=== PATIENT | female | born 1980 | race Caucasian/White ===

== ENCOUNTER 2016-05-12 21:07 | Emergency (ER) | payer OTHER ==
--- NOTE | 2016-05-12 23:12 | ED CLINICAL REPORT ---
Clinical Report - Physicians/Mid Levels [facility] [address] [place] [address] 05/12/2016 21:06 Patient: AMANDA ACEVEDO Time Seen: 2119; upon arrival, initial patient contact, initial documentation, patient care assumed. Arrived- By private vehicle. Historian- patient. HISTORY OF PRESENT ILLNESS Chief Complaint: CHEST PAIN and DISCOMFORT. At its maximum, severity described as moderate. When seen in the E.D., severity described as moderate. Modifying factors. Not worsened by anything. Not relieved by anything. This started just prior to arrival and is still present. It is described as sharp, "pain" and well localized and it is described as located in the central chest area. No radiation. No nausea, vomiting or diaphoresis. (under lots of stress, was on meds years ago for anxiety, but those were stopped, and about x2 mos ago, was on valium but no longer takes that it either, has had issues with insomnia for years and it has been worse lately, would really like to be able to relax to sleep). She has had difficulty breathing. No additional chest pain. Similar symptoms previously: Frequently, milder. ( states she has frequent panic attacks that cause cp, but this is worse). Recent medical care: Not recently seen/assessed. REVIEW OF SYSTEMS No cough or abdominal pain. All systems otherwise negative, except as recorded above. PAST HISTORY See nurses notes. PROBLEMS: Bronchitis. Back Pain. Costochondritis. Flank Pain. Myofascial Strain. Upper Extremity Fracture. Ulna Fracture. Contusion. Concussion. Cervical Strain. Atypical Chest Pain. TMJ Syndrome. Anxiety Reaction. --21:19 Michel Chatterjee RToñoN. ADDITIONAL SURGERIES: Back Surgery. Dilatation & Curettage. Katt valencia 8 weeks ago . Wrist surgery. --21:19 Michel Chatterjee R.N. SOCIAL HISTORY Light tobacco smoker. Regular alcohol use; consumes two glasses of wine daily. No drug use. No recent travel. Is a local resident. FAMILY HISTORY Negative. ADDITIONAL NOTES The nursing notes have been reviewed with agreement regarding the chief complaint, HPI, ROS, PMH and patient medications and allergies. PHYSICAL EXAM Vital Signs: 05/12/2016 21:14 BP: 119/61. HR: 80. RR: 16. O2 saturation: 100%. Temp: 98.9 F. Pain level now: 8/10. Have been reviewed as normal and appear to be correct. Appearance: Alert. Oriented X3. No acute distress. Anxious. Eyes: Pupils equal, round and reactive to light. Eyes normal inspection. Neck: Normal inspection. Neck supple. CVS: Normal heart rate and rhythm. Heart sounds normal. Pulses normal. Respiratory: No respiratory distress. Breath sounds normal. Chest nontender. Back: Normal external inspection. Skin: Skin warm and dry. Normal skin color. No rash. Normal skin turgor. Extremities: Extremities exhibit normal ROM. No lower extremity edema. Neuro: Oriented X 3. No motor deficit. No sensory deficit. LABS, X-RAYS, AND EKG EKG: EKG time: (2125). No acute process. No acute ischemia. Normal EKG. Rate: 80. Normal EKG. The study has been interpreted contemporaneously by me (and Dr. Merrill). The EKG appears to be a good tracing. Interpretation time: 2214. Laboratory Tests: Serum Qualitative: (MARTHA: 05/12/2016 21:25) ( [facility] 05/12/[place] 22:08) Final results Test Result Flag Units (Reference) , SERUM NEGATIVE CBC w Diff: (MARTHA: 05/12/2016 21:25) ( [facility] 05/12/2016 22:08) Final results Test Result Flag Units (Reference) WHITE BLOOD COUNT 6.3 K/uL (4.5-11.5) RED BLOOD COUNT 4.51 M/uL (4.00-5.20) HEMOGLOBIN 14.0 gm/dL (12.0-16.0) HEMATOCRIT 41.9 % (36.0-46.0) MEAN CELL VOLUME 93 fL (80-100) MEAN CORPUSCULAR HGB 31 pg (26-34) MEAN CORPUSCULAR HGB CONC 34 g/dL (31-37) RED CELL DISTRIBUTION WIDTH 13.8 % (11.6-14.8) PLATELET COUNT 240 K/uL (150-400) NEUTROPHIL % 63.2 % (50-75) LYMPH % 27.7 % (25-40) MONO % 7.6 % (3-14) EOSINOPHIL % 1.1 % (0-4) BASOPHIL % 0.4 % (0-2) BMP: (MARTHA: 05/12/2016 21:25) ( [facility] 05/12/2016 22:50) Final results Test Result Flag Units (Reference) GLUCOSE 75 mg/dL (70-110) BUN 28 H mg/dL (7-18) CREATININE 0.7 mg/dL (0.6-1.3) Estimated GFR >60 mL/min Estimated GFR- >60 mL/min Note: Persistent reduction over 3 months in eGFR<60 mL/min/1.73 m2 defines CKD. Patients with eGFR values>=60 mL/min/1.73 m2 may also have CKD if evidence ofpersistent proteinuria. Additional information may be foundat www.kidney.org. SODIUM 140 mmol/L (136-145) POTASSIUM 4.2 mmol/L (3.5-5.1) CHLORIDE 104 mmol/L (98-107) CARBON DIOXIDE 25 mmol/L (21-32) CALCIUM 8.8 mg/dL (8.5-10.1) CPK 154 U/L (24-260) TROPONIN I <0.05 ng/mL (0.00-1.5) TROPONIN REFERENCE RANGE:<0.1 NEGATIVE0.1-1.5 INDETERMINANT>1.5 POSITIVE . PROGRESS AND PROCEDURES Course of Care: 2214. at bedside still doing exam and [employer] was hooking pt up to ekg at 2124, was asking for ekg, and [employer] just now gave it to me 23:45 05/12/16. pt asking for stomach meds, stating her stomach is churning 00:05 05/13/16. pt now asking for more anxiety meds, request denied due to pt given rx for anxiety. Patient counseled in person regarding the patient's stable condition, test results and diagnosis. 23:00. Differential Diagnosis: I considered muscle strain, costochondritis, myositis, pleurisy, myocardial infarction, intermediate coronary syndrome, unstable angina, angina, aortic dissection, mitral valve prolapse, pericarditis, palpitations, pulmonary embolism, pneumonia, gastroesophageal reflux disease, esophagitis and esophageal spasm as a possible cause of chest pain in this patient. This is a partial list of diagnoses considered. (anxiety, panic attack, substance abuse). Disposition: Discharged home in good and improved condition (23:12). Condition: good and stable. CLINICAL IMPRESSION Atypical chest pain .12 lead EKG performed. Anxiety reaction. INSTRUCTIONS Warnings: GENERAL WARNINGS: Return or contact your physician immediately if your condition worsens or changes unexpectedly, if not improving as expected, or if other problems arise. SPECIFICALLY, return if you develop chest, neck, jaw, shoulder, arm, or back pain, difficulty breathing, a fluttering sensation in your chest, lightheadedness, fainting, excessive fatigue, or sudden sweating. Prescription Medications: Xanax 0.25 mg: Take 1 orally every 8 hours as needed for anxiety. Dispense fifteen (15). No refills. Substitution is permissible. Follow-up: Follow up with your doctor in about three days even if well. Call for an appointment. Summary of care provided to patient. Understanding of the discharge instructions verbalized by patient. (Electronically signed by Genesis Hicks A.R.N.P. 05/13/2016 0:23)
--- NOTE | 2016-05-12 23:12 | ED CLINICAL REPORT ---
Clinical Report - Physicians/Mid Levels [facility] [address] [place] [address] 05/12/2016 21:06 Patient: AMANDA ACEVEDO Time Seen: 2119; upon arrival, initial patient contact, initial documentation, patient care assumed. Arrived- By private vehicle. Historian- patient. HISTORY OF PRESENT ILLNESS Chief Complaint: CHEST PAIN and DISCOMFORT. At its maximum, severity described as moderate. When seen in the E.D., severity described as moderate. Modifying factors. Not worsened by anything. Not relieved by anything. This started just prior to arrival and is still present. It is described as sharp, "pain" and well localized and it is described as located in the central chest area. No radiation. No nausea, vomiting or diaphoresis. (under lots of stress, was on meds years ago for anxiety, but those were stopped, and about x2 mos ago, was on valium but no longer takes that it either, has had issues with insomnia for years and it has been worse lately, would really like to be able to relax to sleep). She has had difficulty breathing. No additional chest pain. Similar symptoms previously: Frequently, milder. ( states she has frequent panic attacks that cause cp, but this is worse). Recent medical care: Not recently seen/assessed. REVIEW OF SYSTEMS No cough or abdominal pain. All systems otherwise negative, except as recorded above. PAST HISTORY See nurses notes. PROBLEMS: Bronchitis. Back Pain. Costochondritis. Flank Pain. Myofascial Strain. Upper Extremity Fracture. Ulna Fracture. Contusion. Concussion. Cervical Strain. Atypical Chest Pain. TMJ Syndrome. Anxiety Reaction. --21:19 Michel Chatterjee RToñoN. ADDITIONAL SURGERIES: Back Surgery. Dilatation & Curettage. Katt valencia 8 weeks ago . Wrist surgery. --21:19 Michel Chatterjee R.N. SOCIAL HISTORY Light tobacco smoker. Regular alcohol use; consumes two glasses of wine daily. No drug use. No recent travel. Is a local resident. FAMILY HISTORY Negative. ADDITIONAL NOTES The nursing notes have been reviewed with agreement regarding the chief complaint, HPI, ROS, PMH and patient medications and allergies. PHYSICAL EXAM Vital Signs: 05/12/2016 21:14 BP: 119/61. HR: 80. RR: 16. O2 saturation: 100%. Temp: 98.9 F. Pain level now: 8/10. Have been reviewed as normal and appear to be correct. Appearance: Alert. Oriented X3. No acute distress. Anxious. Eyes: Pupils equal, round and reactive to light. Eyes normal inspection. Neck: Normal inspection. Neck supple. CVS: Normal heart rate and rhythm. Heart sounds normal. Pulses normal. Respiratory: No respiratory distress. Breath sounds normal. Chest nontender. Back: Normal external inspection. Skin: Skin warm and dry. Normal skin color. No rash. Normal skin turgor. Extremities: Extremities exhibit normal ROM. No lower extremity edema. Neuro: Oriented X 3. No motor deficit. No sensory deficit. LABS, X-RAYS, AND EKG EKG: EKG time: (2125). No acute process. No acute ischemia. Normal EKG. Rate: 80. Normal EKG. The study has been interpreted contemporaneously by me (and Dr. Merrill). The EKG appears to be a good tracing. Interpretation time: 2214. Laboratory Tests: Serum Qualitative: (MARTHA: 05/12/2016 21:25) ( [facility]:08) Final results Test Result Flag Units (Reference) , SERUM NEGATIVE CBC w Diff: (MARTHA: 05/12/2016 21:25) ( [facility] 05/12/2016 22:08) Final results Test Result Flag Units (Reference) WHITE BLOOD COUNT 6.3 K/uL (4.5-11.5) RED BLOOD COUNT 4.51 M/uL (4.00-5.20) HEMOGLOBIN 14.0 gm/dL (12.0-16.0) HEMATOCRIT 41.9 % (36.0-46.0) MEAN CELL VOLUME 93 fL (80-100) MEAN CORPUSCULAR HGB 31 pg (26-34) MEAN CORPUSCULAR HGB CONC 34 g/dL (31-37) RED CELL DISTRIBUTION WIDTH 13.8 % (11.6-14.8) PLATELET COUNT 240 K/uL (150-400) NEUTROPHIL % 63.2 % (50-75) LYMPH % 27.7 % (25-40) MONO % 7.6 % (3-14) EOSINOPHIL % 1.1 % (0-4) BASOPHIL % 0.4 % (0-2) BMP: (MARTHA: 05/12/2016 21:25) ( [facility] 05/12/2016 22:50) Final results Test Result Flag Units (Reference) GLUCOSE 75 mg/dL (70-110) BUN 28 H mg/dL (7-18) CREATININE 0.7 mg/dL (0.6-1.3) Estimated GFR >60 mL/min Estimated GFR- >60 mL/min Note: Persistent reduction over 3 months in eGFR<60 mL/min/1.73 m2 defines CKD. Patients with eGFR values>=60 mL/min/1.73 m2 may also have CKD if evidence ofpersistent proteinuria. Additional information may be foundat www.kidney.org. SODIUM 140 mmol/L (136-145) POTASSIUM 4.2 mmol/L (3.5-5.1) CHLORIDE 104 mmol/L (98-107) CARBON DIOXIDE 25 mmol/L (21-32) CALCIUM 8.8 mg/dL (8.5-10.1) CPK 154 U/L (24-260) TROPONIN I <0.05 ng/mL (0.00-1.5) TROPONIN REFERENCE RANGE:<0.1 NEGATIVE0.1-1.5 INDETERMINANT>1.5 POSITIVE . PROGRESS AND PROCEDURES Course of Care: 2214. at bedside still doing exam and [employer] was hooking pt up to ekg at 2124, was asking for ekg, and [employer] just now gave it to me 23:45 05/12/16. pt asking for stomach meds, stating her stomach is churning 00:05 05/13/16. pt now asking for more anxiety meds, request denied due to pt given rx for anxiety. Patient counseled in person regarding the patient's stable condition, test results and diagnosis. 23:00. Differential Diagnosis: I considered muscle strain, costochondritis, myositis, pleurisy, myocardial infarction, intermediate coronary syndrome, unstable angina, angina, aortic dissection, mitral valve prolapse, pericarditis, palpitations, pulmonary embolism, pneumonia, gastroesophageal reflux disease, esophagitis and esophageal spasm as a possible cause of chest pain in this patient. This is a partial list of diagnoses considered. (anxiety, panic attack, substance abuse). Disposition: Discharged home in good and improved condition (23:12). Condition: good and stable. CLINICAL IMPRESSION Atypical chest pain .12 lead EKG performed. Anxiety reaction. INSTRUCTIONS Warnings: GENERAL WARNINGS: Return or contact your physician immediately if your condition worsens or changes unexpectedly, if not improving as expected, or if other problems arise. SPECIFICALLY, return if you develop chest, neck, jaw, shoulder, arm, or back pain, difficulty breathing, a fluttering sensation in your chest, lightheadedness, fainting, excessive fatigue, or sudden sweating. Prescription Medications: Xanax 0.25 mg: Take 1 orally every 8 hours as needed for anxiety. Dispense fifteen (15). No refills. Substitution is permissible. Follow-up: Follow up with your doctor in about three days even if well. Call for an appointment. Summary of care provided to patient. Understanding of the discharge instructions verbalized by patient. (Electronically signed by Genesis Hicks A.R.N.P. 05/13/2016 0:23)
--- NOTE | 2016-05-12 23:13 | ED NURSING NOTES ---
Clinical Report - Nurses [facility] [address] [place] [address] 05/12/2016 21:06 [id number] Triage time 21:14 May 12 2016. Acuity: LEVEL 3. Chief Complaint: CHEST PAIN. Alert. BENJI COMA SCORE: Williams Coma Scale: 15- eyes open spontaneously (4); best verbal response- oriented x 4 (5); best motor response- obeys commands (6). --21:30 Michel Chatterjee R.N. 21:14 05/12/16. BP: 119/61. HR: 80. RR: 16. O2 saturation: 100%. Temp: 98.9 F (oral). Pain level now: 8/10. Additional comments: substernal pain. --21:30 Michel Chatterjee R.N. Weight: 88.4 kg stated. Height/Length: 68 inches Per Patient. BMI: 29.6. --21:17 Michel Chatterjee R.N. Medications Benadryl Oral. Diazepam Oral 10 mg, as needed. --21:20 Michel Chatterjee R.N. Medication/allergy information source: the patient. --21:30 Michel Chatterjee R.N. Allergies No Known Drug Allergy. --21:20 Michel Chatterjee R.N. History Arrived by private vehicle. Historian: patient. Accompanied by spouse. Primary physician ([facility]le). ( Chest Pain located substernally. Pt states that she has had panic attacks before but this is different.). This started just prior to arrival and today. She has had difficulty breathing. 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 PAST MEDICAL HX: Immunizations: up-to-date. Last normal menstrual period- pt states that she has an IUD. Denies current . SOCIAL HX: Light tobacco smoker (cigarette)- less than 1/2 a pack per day. Alcohol use; consumes wine occasionally. No drug use. No infectious disease exposure. ABUSE ASSESSMENT: No report of abuse. FALL RISK ASSESSMENT: Fall risk assessment completed. No fall risk identified. NUTRITIONAL RISK ASSESSMENT: The nutritional risk assessment revealed no deficiencies. FUNCTIONAL ASSESSMENT: Functional assessment: no impairments noted. LEARNING NEEDS ASSESSMENT: The learning needs assessment revealed no barriers. SKIN INTEGRITY ASSESSMENT: Skin integrity risk assessment completed. No skin integrity risk identified. --21:30 Michel Chatterjee R.N. PROBLEMS: Bronchitis. Back Pain. Costochondritis. Flank Pain. Myofascial Strain. Upper Extremity Fracture. Ulna Fracture. Contusion. Concussion. Cervical Strain. Atypical Chest Pain. TMJ Syndrome. Anxiety Reaction. --21:19 Michel Chatterjee R.N. ADDITIONAL SURGERIES: Back Surgery. Dilatation & Curettage. Tummy tuck 8 weeks ago . Wrist surgery. --21:19 Michel Chatterjee R.N. Interventions ID band on patient. To treatment room. --21:30 Michel Chatterjee R.N. PHYSICAL ASSESSMENT Ambulatory to room. GENERAL / NEURO / PSYCH: Alert. Oriented X 4. Appears in pain. HEENT: Mucous membranes are pink. RESPIRATORY: Respirations not labored. Breath sounds within normal limits. CVS: Abnormal heart sounds: murmur (soft LSB 2ICS). Pulses within normal limits. Capillary refill less than 2 seconds. GI / : Abdomen soft and nontender. ( "feels bloated"). EXTREMITIES: No lower extremity edema. SKIN: Skin is warm and dry. Normal skin turgor. Skin is non-tender. --21:34 Michel Chatterjee R.N. NURSING PROGRESS NOTES 21:17 05/12/2016 Site #1 started via IV in the right forearm with an 20g angiocath, with aseptic technique and good blood return; one attempt. Blood drawn: rainbow set. Labeled in the presence of the patient and sent to the lab. Saline lock flushed with 10 mL saline (start by Aixa Hanson RN). --21:22 Michel Chatterjee R.N. teletypesetter monitor, pulse oximeter and NIBP monitor placed on patient; teletypesetter monitor- Lead II and V1; monitor alarms on. Patient gowned. Reassurance given to the patient. Patient identifiers checked. Call light placed in reach. Side rails up x 2. Bed placed in lowest position. Brakes of bed on. Patient ready for evaluation- chart flagged and ED physician notified. --21:34 Michel Chatterjee R.N. 23:51 05/12/2016 Toradol IVP 30 mg given over 2 minute(s) via site #1. Allergies verified and confirmed 5 rights. IV patency established. IV site checked: no pain, redness, or swelling. IV flushed thoroughly pre- and post-medication administration. IVP given by RN. --00:06 Michel Chatterjee R.N. 23:56 05/12/2016 Ativan (LORazepam) IVP 2 mg given over 2 minute(s) via site #1. Allergies verified, confirmed 5 rights and sedative warning given to the patient. IV patency established. IV site checked: no pain, redness, or swelling. IV flushed thoroughly pre- and post-medication administration. IVP given by RN. --00:07 Michel Chatterjee R.N. 23:58 05/12/2016 Viscous Lidocaine 15mL/Maalox 15mL * PO 30mL --00:08 Michel Chatterjee R.N. DISPOSITION / DISCHARGE 00:02 05/13/16. BP: 91/78. HR: 77. RR: 19. O2 saturation: 97%. Pain level now 0/10. --00:02 Alex Atkins R.N. 00:16 05/13/2016 Site #1 removed upon admission. Catheter intact. Bandage applied. --00:16 Alex Atkins R.N. Departure time: 00:20. Condition at departure: improved. No learning barriers present. Discharge instructions provided and reviewed with the patient. Reviewed warnings. Patient verbalized understanding. Written instructions provided in Romanian. ( Pt wanted more anxiety medication to allow her to sleep. SENIOR INFORMATION SECURITY CONSULTANT was notified and stated nothing more could be given for her. Pt was calm and no signs of distress or anxiety when discharged.). The patient was discharged by the nurse practitioner. She was discharged home and accompanied by spouse. She left the Emergency Department ambulatory and via private vehicle. Spouse driving. --00:21 Alex Atkins R.N. Locked/Released at 05/13/2016 0:22 by Alex Atkins R.N.
--- NOTE | 2016-05-12 23:13 | ED ORDER SUMMARY ---
..... Patient: AMANDA ACEVEDO OrderSheet [facility] VisitID: [id number] [place] [address] 36y, F Registration Date/Time: 05/12/2016 ORDER SHEET Weight: 88.4 kg (stated) Allergies: No Known Drug Allergy GENERAL ORDERS: Chest 2V Urgent (21:53 05/12/2016 HBivens A.R.N.P.) (22:04 LTapper) CBC w Diff Urgent (21:53 05/12/2016 HBivens A.R.N.P.) (Ack 22:22 LTapper) (23:33 JRomanelli R.N.) BMP Urgent (21:53 05/12/2016 HBivens A.R.N.P.) (Ack 22:22 LTapper) (23:33 JRomanelli R.N.) CPK Urgent (21:53 05/12/2016 HBivens A.R.N.P.) (Ack 22:22 LTapper) (23:33 JRomanelli R.N.) Troponin-I Urgent (21:53 05/12/2016 HBivens A.R.N.P.) (Ack 22:22 LTapper) (23:33 JRomanelli R.N.) Serum Qualitative Urgent (21:53 05/12/2016 HBivens A.R.N.P.) (Ack 22:22 LTapper) (23:33 JRomanelli R.N.) EKG - ER Stat (21:53 05/12/2016 HBivens A.R.N.P.) (22:22 LTapper) MEDICATION ORDERS: GI Cocktail WHITE PO 30 mL with Lidocaine Viscous Mouth/Throat 15 mL, Maalox Plus Oral 15 mL (NOW) (23:45 05/12/2016 HBivens A.R.N.P.) (Ack 23:59 JDeElena R.N.) (0:08 JRomanelli R.N.) IV FLUIDS: IV Saline Lock (21:21 05/12/2016 JRomanelli R.N. verbal order read back to HBivens A.R.N.P.) (21:22 omanelli R.N.) Toradol IV 30 mg (NOW) (23:04 05/12/2016 HBivens A.R.N.P.) (Ack 23:42 ChayaElena R.N.) (0:06 JRomanelli R.N.) Ativan IV 2 mg (HIGH ALERT MEDICATION, NOW) (23:04 05/12/2016 HBivens A.R.N.P.) (Ack 23:42 ChayaElena R.N.) (0:07 JRomanelli R.N.) ORDER SHEET NOTES: [Electronically signed by Alex Atkins R.N. (00:05/13/2016)] [Electronically signed by Genesis HicksN.P. (00:05/13/2016)] [Electronically locked/signed by Alex Atkins R.N. (00:05/13/2016)]
--- NOTE | 2016-05-12 23:13 | ED NURSING NOTES ---
Clinical Report - Nurses [facility] [place] [address] 05/12/2016 21:06 [id number] Triage time 21:14 May 12 2016. Acuity: LEVEL 3. Chief Complaint: CHEST PAIN. Alert. BENJI COMA SCORE: [place] Coma Scale: 15- eyes open spontaneously (4); best verbal response- oriented x 4 (5); best motor response- obeys commands (6). --21:30 Michel Chatterjee R.N. 21:14 05/12/16. BP: 119/61. HR: 80. RR: 16. O2 saturation: 100%. Temp: 98.9 F (oral). Pain level now: 8/10. Additional comments: substernal pain. --21:30 Michel Chatterjee R.N. Weight: 88.4 kg stated. Height/Length: 68 inches Per Patient. BMI: 29.6. --21:17 Michel Chatterjee R.N. Medications Benadryl Oral. Diazepam Oral 10 mg, as needed. --21:20 Michel Chatterjee R.N. Medication/allergy information source: the patient. --21:30 Michel Chatterjee R.N. Allergies No Known Drug Allergy. --21:20 Michel Chatterjee R.N. History Arrived by private vehicle. Historian: patient. Accompanied by spouse. Primary physician (Ihle). ( Chest Pain located substernally. Pt states that she has had panic attacks before but this is different.). This started just prior to arrival and today. She has had difficulty breathing. 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 PAST MEDICAL HX: Immunizations: up-to-date. Last normal menstrual period- pt states that she has an IUD. Denies current . SOCIAL HX: Light tobacco smoker (cigarette)- less than 1/2 a pack per day. Alcohol use; consumes wine occasionally. No drug use. No infectious disease exposure. ABUSE ASSESSMENT: No report of abuse. FALL RISK ASSESSMENT: Fall risk assessment completed. No fall risk identified. NUTRITIONAL RISK ASSESSMENT: The nutritional risk assessment revealed no deficiencies. FUNCTIONAL ASSESSMENT: Functional assessment: no impairments noted. LEARNING NEEDS ASSESSMENT: The learning needs assessment revealed no barriers. SKIN INTEGRITY ASSESSMENT: Skin integrity risk assessment completed. No skin integrity risk identified. --21:30 Michel Chatterjee R.N. PROBLEMS: Bronchitis. Back Pain. Costochondritis. Flank Pain. Myofascial Strain. Upper Extremity Fracture. Ulna Fracture. Contusion. Concussion. Cervical Strain. Atypical Chest Pain. TMJ Syndrome. Anxiety Reaction. --21:19 Michel Chatterjee R.N. ADDITIONAL SURGERIES: Back Surgery. Dilatation & Curettage. Tummy tuck 8 weeks ago . Wrist surgery. --21:19 Michel Chatterjee R.N. Interventions ID band on patient. To treatment room. --21:30 Michel Chatterjee R.N. PHYSICAL ASSESSMENT Ambulatory to room. GENERAL / NEURO / PSYCH: Alert. Oriented X 4. Appears in pain. HEENT: Mucous membranes are pink. RESPIRATORY: Respirations not labored. Breath sounds within normal limits. CVS: Abnormal heart sounds: murmur (soft LSB 2ICS). Pulses within normal limits. Capillary refill less than 2 seconds. GI / : Abdomen soft and nontender. ( "feels bloated"). EXTREMITIES: No lower extremity edema. SKIN: Skin is warm and dry. Normal skin turgor. Skin is non-tender. --21:34 Michel Chatterjee R.N. NURSING PROGRESS NOTES 21:17 05/12/2016 Site #1 started via IV in the right forearm with an 20g angiocath, with aseptic technique and good blood return; one attempt. Blood drawn: rainbow set. Labeled in the presence of the patient and sent to the lab. Saline lock flushed with 10 mL saline (start by Aixa Hanson RN). --21:22 Michel Chatterjee R.N. regional medical director, pulse oximeter and NIBP monitor placed on patient; director cardiac- Lead II and V1; monitor alarms on. Patient gowned. Reassurance given to the patient. Patient identifiers checked. Call light placed in reach. Side rails up x 2. Bed placed in lowest position. Brakes of bed on. Patient ready for evaluation- chart flagged and ED physician notified. --21:34 Michel Chatterjee R.N. 23:51 05/12/2016 Toradol IVP 30 mg given over 2 minute(s) via site #1. Allergies verified and confirmed 5 rights. IV patency established. IV site checked: no pain, redness, or swelling. IV flushed thoroughly pre- and post-medication administration. IVP given by RN. --00:06 Michel Chatterjee R.N. 23:56 05/12/2016 Ativan (LORazepam) IVP 2 mg given over 2 minute(s) via site #1. Allergies verified, confirmed 5 rights and sedative warning given to the patient. IV patency established. IV site checked: no pain, redness, or swelling. IV flushed thoroughly pre- and post-medication administration. IVP given by RN. --00:07 Michel Chatterjee R.N. 23:58 05/12/2016 Viscous Lidocaine 15mL/Maalox 15mL * PO 30mL --00:08 Michel Chatterjee R.N. DISPOSITION / DISCHARGE 00:02 05/13/16. BP: 91/78. HR: 77. RR: 19. O2 saturation: 97%. Pain level now 0/10. --00:02 Alex Atkins R.N. 00:16 05/13/2016 Site #1 removed upon admission. Catheter intact. Bandage applied. --00:16 Alex Atkins R.N. Departure time: 00:20. Condition at departure: improved. No learning barriers present. Discharge instructions provided and reviewed with the patient. Reviewed warnings. Patient verbalized understanding. Written instructions provided in Greenlandic. ( Pt wanted more anxiety medication to allow her to sleep. FEATHER EDGER was notified and stated nothing more could be given for her. Pt was calm and no signs of distress or anxiety when discharged.). The patient was discharged by the nurse practitioner. She was discharged home and accompanied by spouse. She left the Emergency Department ambulatory and via private vehicle. Spouse driving. --00:21 Alex Atkins R.N. Locked/Released at 05/13/2016 0:22 by Alex Atkins R.N.
--- NOTE | 2016-05-12 23:13 | ED ORDER SUMMARY ---
..... Patient: AMANDA ACEVEDO OrderSheet [facility] VisitID: [id number] [place] [address] 36y, F Registration Date/Time: 05/12/2016 ORDER SHEET Weight: 88.4 kg (stated) Allergies: No Known Drug Allergy GENERAL ORDERS: Chest 2V Urgent (21:53 05/12/2016 HBivens A.R.N.P.) (22:04 LTapper) CBC w Diff Urgent (21:53 05/12/2016 HBivens A.R.N.P.) (Ack 22:22 LTapper) (23:33 JRomanelli R.N.) BMP Urgent (21:53 05/12/2016 HBivens A.R.N.P.) (Ack 22:22 LTapper) (23:33 JRomanelli R.N.) CPK Urgent (21:53 05/12/2016 HBivens A.R.N.P.) (Ack 22:22 LTapper) (23:33 JRomanelli R.N.) Troponin-I Urgent (21:53 05/12/2016 HBivens A.R.N.P.) (Ack 22:22 LTapper) (23:33 JRomanelli R.N.) Serum Qualitative Urgent (21:53 05/12/2016 HBivens A.R.N.P.) (Ack 22:22 LTapper) (23:33 JRomanelli R.N.) EKG - ER Stat (21:53 05/12/2016 HBivens A.R.N.P.) (22:22 LTapper) MEDICATION ORDERS: GI Cocktail WHITE PO 30 mL with Lidocaine Viscous Mouth/Throat 15 mL, Maalox Plus Oral 15 mL (NOW) (23:45 05/12/2016 HBivens A.R.N.P.) (Ack 23:59 JDeElena R.N.) (0:08 JRomanelli R.N.) IV FLUIDS: IV Saline Lock (21:21 05/12/2016 JRomanelli R.N. verbal order read back to HBivens A.R.N.P.) (21:22 omanelli R.N.) Toradol IV 30 mg (NOW) (23:04 05/12/2016 HBivens A.R.N.P.) (Ack 23:42 ChayaElena R.N.) (0:06 JRomanelli R.N.) Ativan IV 2 mg (HIGH ALERT MEDICATION, NOW) (23:04 05/12/2016 HBivens A.R.N.P.) (Ack 23:42 ChayaElena R.N.) (0:07 JRomanelli R.N.) ORDER SHEET NOTES: [Electronically signed by Alex Atkins R.N. (00:05/13/2016)] [Electronically signed by Genesis HicksN.P. (00:05/13/2016)] [Electronically locked/signed by Alex Atkins R.N. (00:05/13/2016)]
--- NOTE | 2016-05-13 00:03 | DIAGNOSTIC IMAGING REPORT ---
PROCEDURE: XR CHEST 2 VIEW INDICATION: Chest pain, initial encounter TECHNIQUE: PA and lateral view. COMPARISON: Chest x-ray 03/27/2016 FINDINGS: Lungs are clear. Cardiovascular structures are normal. Bony thorax is unremarkable. No significant interval change. IMPRESSION: 1. Negative chest.
--- NOTE | 2016-05-13 00:23 | ED MAR SUMMARY ---
..... Medication Administration Record [facility] [address] [place] [address] Patient: AMANDA ACEVEDO Visit ID: [id number] 36y, F Weight: 88.4 kg Height/Length: 68 in BMI: 29.6 ALLERGIES: No Known Drug Allergy Given 23:51 05/12/2016 Michel Chatterjee, R.N. Medication Administered: TORADOL [IVP], Dose: 30 mg IVP over 2 minute(s), Site: #1 right forearm. Medication Ordered: Toradol IV 30 mg (NOW). Given 23:56 05/12/2016 Michel Chatterjee, R.N. Medication Administered: ATIVAN [IVP] (LORAZEPAM), Dose: 2 mg IVP over 2 minute(s), Site: #1 right forearm. Medication Ordered: Ativan IV 2 mg (HIGH ALERT MEDICATION, NOW). Given 23:58 05/12/2016 Michel Chatterjee, R.N. Medication Administered: Viscous Lidocaine 15mL/Maalox 15mL *, Dose: 30mL * PO. Medication Ordered: GI Cocktail WHITE PO 30 mL with Lidocaine Viscous Mouth/Throat 15 mL, Maalox Plus Oral 15 mL (NOW).
--- NOTE | 2016-05-13 00:23 | ED MED RECONCILIATION SUMMARY ---
Patient: AMANDA ACEVEDO Medication Reconciliation Report [facility] VisitID: [id number] [place] [address] 36y, F Registration Date/Time: 05/12/2016 Weight: 88.4 kg Height/Length: 68 in. BMI: 29.6 ALLERGIES: No Known Drug Allergy The patient's Home Medications are listed below: THE FOLLOWING MEDICATIONS NEED TO BE RECONCILED: Benadryl Oral Diazepam Oral 10 mg The source(s) of the original Home Medication information: patient The following Medications were given to the patient in the Emergency Department: Toradol [IVP] IVP 30 mg, administered: 05/12/2016 11:51:00 PM Ativan [IVP] IVP 2 mg, administered: 05/12/2016 11:56:00 PM Viscous Lidocaine 15mL/Maalox 15mL PO 30mL, administered: 05/12/2016 11:58:00 PM The following Medications were prescribed to the patient: Xanax 0.25 mg: Take 1 orally every 8 hours as needed for anxiety. Dispense fifteen (15). No refills. Substitution is permissible. -- Genesis Hicks A.R.N.P.
--- NOTE | 2016-05-13 00:23 | ED MED RECONCILIATION SUMMARY ---
Patient: AMANDA ACEVEDO Medication Reconciliation Report [facility] VisitID: [id number] [place] [address] 36y, F Registration Date/Time: 05/12/2016 Weight: 88.4 kg Height/Length: 68 in. BMI: 29.6 ALLERGIES: No Known Drug Allergy The patient's Home Medications are listed below: THE FOLLOWING MEDICATIONS NEED TO BE RECONCILED: Benadryl Oral Diazepam Oral 10 mg The source(s) of the original Home Medication information: patient The following Medications were given to the patient in the Emergency Department: Toradol [IVP] IVP 30 mg, administered: 05/12/2016 11:51:00 PM Ativan [IVP] IVP 2 mg, administered: 05/12/2016 11:56:00 PM Viscous Lidocaine 15mL/Maalox 15mL PO 30mL, administered: 05/12/2016 11:58:00 PM The following Medications were prescribed to the patient: Xanax 0.25 mg: Take 1 orally every 8 hours as needed for anxiety. Dispense fifteen (15). No refills. Substitution is permissible. -- Genesis Hicks A.R.N.P.
--- NOTE | 2016-05-13 00:23 | ED DISCHARGE INSTRUCTIONS ---
Patient: AMANDA ACEVEDO General Instructions [facility] VisitID: [id number] [place] [address] 36y, F Registration Date/Time: 05/12/2016 Atypical chest pain .12 lead EKG performed. Anxiety reaction. INSTRUCTIONS Warnings: GENERAL WARNINGS: Return or contact your physician immediately if your condition worsens or changes unexpectedly, if not improving as expected, or if other problems arise. SPECIFICALLY, return if you develop chest, neck, jaw, shoulder, arm, or back pain, difficulty breathing, a fluttering sensation in your chest, lightheadedness, fainting, excessive fatigue, or sudden sweating. Prescription Medications: Xanax 0.25 mg: Take 1 orally every 8 hours as needed for anxiety. Dispense fifteen (15). No refills. Substitution is permissible. Follow-up: Follow up with your doctor in about three days even if well. Call for an appointment. Summary of care provided to patient. Understanding of the discharge instructions verbalized by patient. ADDITIONAL INFORMATION Chest Pain, Noncardiac Based on your visit today, the exact cause of your chest pain is not certain. Your condition does not seem serious and your pain does not appear to be coming from your heart. However, sometimes the signs of a serious problem take more time to appear. Therefore, please watch for the warning signs listed below. Home Care: Rest today and avoid strenuous activity. Take any prescribed medicine as directed. Follow Up with your doctor or this facility as instructed or if you do not start to feel better within 24 hours. Get Prompt Medical Attention if any of the following occur: A change in the type of pain: if it feels different, becomes more severe, lasts longer, or begins to spread into your shoulder, arm, neck, jaw or back Shortness of breath or increased pain with breathing Cough with dark colored sputum (phlegm) or blood Weakness, dizziness, or fainting Fever of 100.4F (38C) or higher, or as directed by your healthcare provider Swelling, pain or redness in one leg Stress Reaction Anxiety is the feeling we all get when we think something bad might happen. It is a normal response to stress and usually causes only a mild reaction. When anxiety becomes more severe, emotions may interfere with daily life. In some cases, you may not even be aware of what it is youre anxious about! During an anxiety reaction, you may feel like you are helpless, nervous, depressed or irritable. Your body may show signs of anxiety in many ways. You may experience dry mouth, shakiness, dizziness, weakness, trouble breathing, chest pressure, headache, nausea, diarrhea, tiredness, inability to sleep or sexual problems. Home Care: 1) Try to locate the sources of stress in your life. They may not be obvious! These may include: -- Daily hassles of life which pile up (traffic jams, missed appointments, car troubles, etc.) -- Major life changes, both good (new baby, job promotion) and bad (loss of job, loss of loved one) -- Overload: feeling that you have too many responsibilities and can't take care of all of them at once -- Feeling helpless, feeling that your problems are beyond what youre able to solve 2) Notice how your body reacts to stress. Learn to listen to your body signals. This will help you take action before the stress becomes severe. 3) When you can, do something about the source of your stress. (Avoid hassles, limit the amount of change that happens in your life at one time and take a break when you feel overloaded). 4) Unfortunately, many stressful situations cannot be avoided. It is necessary to learn HOW TO MANAGE STRESS better. There are many proven methods that will reduce your anxiety. These include simple things like exercise, good nutrition and adequate rest. Also, there are certain techniques that are helpful: relaxation and breathing exercises, visualization, biofeedback and meditation. For more information about this, consult your doctor or go to a local bookstore and review the many books and tapes available on this subject. Follow Up If you feel that your anxiety is not responding to self-help measures, contact your doctor or make an appointment with a counselor. Get Prompt Medical Attention if any of the following occur: -- Your symptoms get worse -- Chest pain or trouble breathing -- Severe headache not relieved by rest and mild pain reliever -- Rapid or irregular heartbeat, fainting Panic Attack A panic attack is an extreme fear reaction that comes on for no apparent reason. Symptoms may include pounding or racing heartbeat, shortness of breath, dizziness, weakness and sweating. There is usually a fear that something terrible will happen or that you may . The attack may last a few minutes up to a few hours. Between attacks things will seem quite normal. This condition has a psychological cause and can be treated with the help of a therapist or psychiatrist. Medication is often used and can be very helpful for this problem. Home Care: Try to identify the sources of stress in your life. It may not be obvious! These may include: Daily hassles of life which pile up (traffic jams, missed appointments, car troubles, etc.). Major life changes, both good (new baby, job promotion) and bad (loss of job, loss of loved one). Overload: feeling that you have too many responsibilities and can't take care of everything at once. Helplessness: feeling like your problems are too much for you to handle. Notice how your body reacts to stress. Learn to listen to your body signals so that you can take action before the stress becomes severe. When possible, AVOID or REDUCE THE CAUSE OF STRESS. Avoid hassles, limit the amount of change that is happening in your life at one time or take a break when you feel overloaded. Unfortunately, many stressful situations cannot be avoided. Therefore, it is necessary to LEARN HOW TO MANAGE STRESS better. There are many proven methods that work and will reduce your anxiety. These include simple things like exercise, good nutrition and adequate rest. Also, there are certain techniques that are helpful: relaxation and breathing exercises, visualization, biofeedback, meditation or simply taking some time-out to clear your mind. For more information about this, consult your doctor or go to a local bookstore and review the many books and tapes available on this subject. Follow Up with your doctor or a therapist as advised. Get Prompt Medical Attention if any of the following occur: Worsening of your symptoms to the point of feeling [id number] A change in the type of pain: if it feels different, becomes more severe, lasts longer, or begins to spread into your shoulder, arm, neck, jaw or back Shortness of breath or increased pain with breathing Increasing feeling of weakness or dizziness Fainting Cough with dark colored sputum (phlegm) or blood Fever of 100.4F (38C) or higher, or as directed by your healthcare provider Swelling, pain or redness in one leg Alprazolam Oral tablet What is this medicine? ALPRAZOLAM (al PRAY wendy reeder) is a benzodiazepine. It is used to treat anxiety and panic attacks. How should I use this medicine? Take this medicine by mouth with a glass of water. Follow the directions on the prescription label. Take your medicine at regular intervals. Do not take it more often than directed. If you have been taking this medicine regularly for some time, do not suddenly stop taking it. You must gradually reduce the dose or you may get severe side effects. Ask your doctor or health care specialist for advice. Even after you stop taking this medicine it can still affect your body for several days. Talk to your wet washer machine regarding the use of this medicine in children. Special care may be needed. What side effects may I notice from receiving this medicine? Side effects that you should report to your doctor or health care specialist as soon as possible: allergic reactions like skin rash, itching or hives, swelling of the face, lips, or tongue confusion, forgetfulness depression difficulty sleeping difficulty speaking feeling faint or lightheaded, falls mood changes, excitability or aggressive behavior muscle cramps trouble passing urine or change in the amount of urine unusually weak or tired Side effects that usually do not require medical attention (report to your doctor or health care specialist if they continue or are bothersome): change in sex drive or performance changes in appetite What may interact with this medicine? Do not take this medicine with any of the following medications: certain medicines for HIV infection or AIDS ketoconazole itraconazole This medicine may also interact with the following medications: control pills certain macrolide antibiotics like clarithromycin, erythromycin, troleandomycin cimetidine cyclosporine ergotamine grapefruit juice herbal or dietary supplements like kava kava, melatonin, dehydroepiandrosterone, DHEA, Myrna's Wort or valerian imatinib, [id number] isoniazid levodopa medicines for depression, anxiety, or psychotic disturbances prescription pain medicines rifampin, rifapentine, or rifabutin some medicines for blood pressure or heart problems some medicines for seizures like carbamazepine, oxcarbazepine, phenobarbital, phenytoin, primidone What if I miss a dose? If you miss a dose, take it as soon as you can. If it is almost time for your next dose, take only that dose. Do not take double or extra doses. Where should I keep my medicine? Keep out of the reach of children. This medicine can be abused. Keep your medicine in a safe place to protect it from theft. Do not share this medicine with anyone. Selling or giving away this medicine is dangerous and against the law. Store at room temperature between 20 and 25 degrees C (68 and 77 degrees F). Throw away any unused medicine after the expiration date. What should I tell my health care provider before I take this medicine? They need to know if you have any of these conditions: an alcohol or drug abuse problem bipolar disorder, depression, psychosis or other mental health conditions glaucoma kidney or liver disease lung or breathing disease myasthenia gravis Parkinson's disease porphyria seizures or a history of seizures suicidal thoughts an unusual or allergic reaction to alprazolam, other benzodiazepines, foods, dyes, or preservatives or trying to get breast-feeding What should I watch for while using this medicine? Visit your doctor or health care specialist for regular checks on your progress. Your body can become dependent on this medicine. Ask your doctor or health care specialist if you still need to take it. You may get drowsy or dizzy. Do not drive, use machinery, or do anything that needs mental alertness until you know how this medicine affects you. To reduce the risk of dizzy and fainting spells, do not stand or sit up quickly, especially if you are an older patient. Alcohol may increase dizziness and drowsiness. Avoid alcoholic drinks. Do not treat yourself for coughs, colds or allergies without asking your doctor or health care specialist for advice. Some ingredients can increase possible side effects. You have been given the following additional information: Chest Pain, Noncardiac Anxiety Reaction Panic Attack Alprazolam Oral tablet (Electronically signed by Genesis Hicks A.R.N.P. 05/13/2016 0:23)
--- NOTE | 2016-05-13 00:23 | ED MAR SUMMARY ---
..... Medication Administration Record [facility] [address] [place] [address] Patient: AMANDA ACEVEDO Visit ID: [id number] 36y, F Weight: 88.4 kg Height/Length: 68 in BMI: 29.6 ALLERGIES: No Known Drug Allergy Given 23:51 05/12/2016 Michel Chatterjee, R.N. Medication Administered: TORADOL [IVP], Dose: 30 mg IVP over 2 minute(s), Site: #1 right forearm. Medication Ordered: Toradol IV 30 mg (NOW). Given 23:56 05/12/2016 Michel Chatterjee, R.N. Medication Administered: ATIVAN [IVP] (LORAZEPAM), Dose: 2 mg IVP over 2 minute(s), Site: #1 right forearm. Medication Ordered: Ativan IV 2 mg (HIGH ALERT MEDICATION, NOW). Given 23:58 05/12/2016 Michel Chatterjee, R.N. Medication Administered: Viscous Lidocaine 15mL/Maalox 15mL *, Dose: 30mL * PO. Medication Ordered: GI Cocktail WHITE PO 30 mL with Lidocaine Viscous Mouth/Throat 15 mL, Maalox Plus Oral 15 mL (NOW).
--- NOTE | 2016-05-13 00:23 | ED DISCHARGE INSTRUCTIONS ---
Patient: AMANDA ACEVEDO General Instructions [facility] VisitID: [id number] [place] [address] 36y, F Registration Date/Time: 05/12/2016 Atypical chest pain .12 lead EKG performed. Anxiety reaction. INSTRUCTIONS Warnings: GENERAL WARNINGS: Return or contact your physician immediately if your condition worsens or changes unexpectedly, if not improving as expected, or if other problems arise. SPECIFICALLY, return if you develop chest, neck, jaw, shoulder, arm, or back pain, difficulty breathing, a fluttering sensation in your chest, lightheadedness, fainting, excessive fatigue, or sudden sweating. Prescription Medications: Xanax 0.25 mg: Take 1 orally every 8 hours as needed for anxiety. Dispense fifteen (15). No refills. Substitution is permissible. Follow-up: Follow up with your doctor in about three days even if well. Call for an appointment. Summary of care provided to patient. Understanding of the discharge instructions verbalized by patient. ADDITIONAL INFORMATION Chest Pain, Noncardiac Based on your visit today, the exact cause of your chest pain is not certain. Your condition does not seem serious and your pain does not appear to be coming from your heart. However, sometimes the signs of a serious problem take more time to appear. Therefore, please watch for the warning signs listed below. Home Care: Rest today and avoid strenuous activity. Take any prescribed medicine as directed. Follow Up with your doctor or this facility as instructed or if you do not start to feel better within 24 hours. Get Prompt Medical Attention if any of the following occur: A change in the type of pain: if it feels different, becomes more severe, lasts longer, or begins to spread into your shoulder, arm, neck, jaw or back Shortness of breath or increased pain with breathing Cough with dark colored sputum (phlegm) or blood Weakness, dizziness, or fainting Fever of 100.4F (38C) or higher, or as directed by your healthcare provider Swelling, pain or redness in one leg Stress Reaction Anxiety is the feeling we all get when we think something bad might happen. It is a normal response to stress and usually causes only a mild reaction. When anxiety becomes more severe, emotions may interfere with daily life. In some cases, you may not even be aware of what it is youre anxious about! During an anxiety reaction, you may feel like you are helpless, nervous, depressed or irritable. Your body may show signs of anxiety in many ways. You may experience dry mouth, shakiness, dizziness, weakness, trouble breathing, chest pressure, headache, nausea, diarrhea, tiredness, inability to sleep or sexual problems. Home Care: 1) Try to locate the sources of stress in your life. They may not be obvious! These may include: -- Daily hassles of life which pile up (traffic jams, missed appointments, car troubles, etc.) -- Major life changes, both good (new baby, job promotion) and bad (loss of job, loss of loved one) -- Overload: feeling that you have too many responsibilities and can't take care of all of them at once -- Feeling helpless, feeling that your problems are beyond what youre able to solve 2) Notice how your body reacts to stress. Learn to listen to your body signals. This will help you take action before the stress becomes severe. 3) When you can, do something about the source of your stress. (Avoid hassles, limit the amount of change that happens in your life at one time and take a break when you feel overloaded). 4) Unfortunately, many stressful situations cannot be avoided. It is necessary to learn HOW TO MANAGE STRESS better. There are many proven methods that will reduce your anxiety. These include simple things like exercise, good nutrition and adequate rest. Also, there are certain techniques that are helpful: relaxation and breathing exercises, visualization, biofeedback and meditation. For more information about this, consult your doctor or go to a local bookstore and review the many books and tapes available on this subject. Follow Up If you feel that your anxiety is not responding to self-help measures, contact your doctor or make an appointment with a counselor. Get Prompt Medical Attention if any of the following occur: -- Your symptoms get worse -- Chest pain or trouble breathing -- Severe headache not relieved by rest and mild pain reliever -- Rapid or irregular heartbeat, fainting Panic Attack A panic attack is an extreme fear reaction that comes on for no apparent reason. Symptoms may include pounding or racing heartbeat, shortness of breath, dizziness, weakness and sweating. There is usually a fear that something terrible will happen or that you may . The attack may last a few minutes up to a few hours. Between attacks things will seem quite normal. This condition has a psychological cause and can be treated with the help of a therapist or psychiatrist. Medication is often used and can be very helpful for this problem. Home Care: Try to identify the sources of stress in your life. It may not be obvious! These may include: Daily hassles of life which pile up (traffic jams, missed appointments, car troubles, etc.). Major life changes, both good (new baby, job promotion) and bad (loss of job, loss of loved one). Overload: feeling that you have too many responsibilities and can't take care of everything at once. Helplessness: feeling like your problems are too much for you to handle. Notice how your body reacts to stress. Learn to listen to your body signals so that you can take action before the stress becomes severe. When possible, AVOID or REDUCE THE CAUSE OF STRESS. Avoid hassles, limit the amount of change that is happening in your life at one time or take a break when you feel overloaded. Unfortunately, many stressful situations cannot be avoided. Therefore, it is necessary to LEARN HOW TO MANAGE STRESS better. There are many proven methods that work and will reduce your anxiety. These include simple things like exercise, good nutrition and adequate rest. Also, there are certain techniques that are helpful: relaxation and breathing exercises, visualization, biofeedback, meditation or simply taking some time-out to clear your mind. For more information about this, consult your doctor or go to a local bookstore and review the many books and tapes available on this subject. Follow Up with your doctor or a therapist as advised. Get Prompt Medical Attention if any of the following occur: Worsening of your symptoms to the point of feeling [id number] A change in the type of pain: if it feels different, becomes more severe, lasts longer, or begins to spread into your shoulder, arm, neck, jaw or back Shortness of breath or increased pain with breathing Increasing feeling of weakness or dizziness Fainting Cough with dark colored sputum (phlegm) or blood Fever of 100.4F (38C) or higher, or as directed by your healthcare provider Swelling, pain or redness in one leg Alprazolam Oral tablet What is this medicine? ALPRAZOLAM (al PRAY wendy reeder) is a benzodiazepine. It is used to treat anxiety and panic attacks. How should I use this medicine? Take this medicine by mouth with a glass of water. Follow the directions on the prescription label. Take your medicine at regular intervals. Do not take it more often than directed. If you have been taking this medicine regularly for some time, do not suddenly stop taking it. You must gradually reduce the dose or you may get severe side effects. Ask your doctor or health personal care service provider for advice. Even after you stop taking this medicine it can still affect your body for several days. Talk to your turner machine operator regarding the use of this medicine in children. Special care may be needed. What side effects may I notice from receiving this medicine? Side effects that you should report to your doctor or health personal care service provider as soon as possible: allergic reactions like skin rash, itching or hives, swelling of the face, lips, or tongue confusion, forgetfulness depression difficulty sleeping difficulty speaking feeling faint or lightheaded, falls mood changes, excitability or aggressive behavior muscle cramps trouble passing urine or change in the amount of urine unusually weak or tired Side effects that usually do not require medical attention (report to your doctor or health personal care service provider if they continue or are bothersome): change in sex drive or performance changes in appetite What may interact with this medicine? Do not take this medicine with any of the following medications: certain medicines for HIV infection or AIDS ketoconazole itraconazole This medicine may also interact with the following medications: control pills certain macrolide antibiotics like clarithromycin, erythromycin, troleandomycin cimetidine cyclosporine ergotamine grapefruit juice herbal or dietary supplements like kava kava, melatonin, dehydroepiandrosterone, DHEA, Myrna's Wort or valerian imatinib, [id number] isoniazid levodopa medicines for depression, anxiety, or psychotic disturbances prescription pain medicines rifampin, rifapentine, or rifabutin some medicines for blood pressure or heart problems some medicines for seizures like carbamazepine, oxcarbazepine, phenobarbital, phenytoin, primidone What if I miss a dose? If you miss a dose, take it as soon as you can. If it is almost time for your next dose, take only that dose. Do not take double or extra doses. Where should I keep my medicine? Keep out of the reach of children. This medicine can be abused. Keep your medicine in a safe place to protect it from theft. Do not share this medicine with anyone. Selling or giving away this medicine is dangerous and against the law. Store at room temperature between 20 and 25 degrees C (68 and 77 degrees F). Throw away any unused medicine after the expiration date. What should I tell my health care provider before I take this medicine? They need to know if you have any of these conditions: an alcohol or drug abuse problem bipolar disorder, depression, psychosis or other mental health conditions glaucoma kidney or liver disease lung or breathing disease myasthenia gravis Parkinson's disease porphyria seizures or a history of seizures suicidal thoughts an unusual or allergic reaction to alprazolam, other benzodiazepines, foods, dyes, or preservatives or trying to get breast-feeding What should I watch for while using this medicine? Visit your doctor or health personal care service provider for regular checks on your progress. Your body can become dependent on this medicine. Ask your doctor or health personal care service provider if you still need to take it. You may get drowsy or dizzy. Do not drive, use machinery, or do anything that needs mental alertness until you know how this medicine affects you. To reduce the risk of dizzy and fainting spells, do not stand or sit up quickly, especially if you are an older patient. Alcohol may increase dizziness and drowsiness. Avoid alcoholic drinks. Do not treat yourself for coughs, colds or allergies without asking your doctor or health personal care service provider for advice. Some ingredients can increase possible side effects. You have been given the following additional information: Chest Pain, Noncardiac Anxiety Reaction Panic Attack Alprazolam Oral tablet (Electronically signed by Genesis Hicks A.R.N.P. 05/13/2016 0:23)
== END 2016-05-13 00:20 | disposition home or self-care (01) ==
LOC: ED SRH 21:07
DX: R07.89 Other chest pain (principal); F41.1 Generalized anxiety disorder; F17.210 Nicotine dependence, cigarettes, uncomplicated
CPT/HCPCS: 90047; 90616; 92610; 95059; 98428